=== PATIENT | female | born 1930 | race Caucasian/White ===

== ENCOUNTER 2017-10-08 10:40 | Observation (INO) | payer OTHER, MEDICARE ==
--- NOTE | 2017-10-08 10:59 | EDPHY ---
H & P Time Seen by Provider: 10/08/17 10:54 HPI/ROS: Chief complaint. Shortness of breath, altered mental status HPI. A 87-year-old female presents emergency department with multiple complaints. Patient moved from [place] 5 days ago. She has slight shortness of breath. She was cold yesterday. She is concerned about electrolytes though she has been drinking over light solution. She had headache yesterday but not today. Her mentation for the she feels is somewhat foggy. She has no chest discomfort but slight shortness of breath. No fever cough. No abdominal pain but feels she is passing increased amounts of gas per rectum. No unusual leg pain or swelling. Her blood pressure has been somewhat high she does have a history of hypertension and takes both losartan and atenolol. She was checked out by her self storage manager before she left [place] and the self storage manager felt she was find to move to altitude. ROS Constitutional. no fever/chills, no weakness Eyes. no problems with vision ENT. no sore throat, no nasal drainage Cardiovascular. no chest pain Respiratory. Slight shortness of breath Abdominal. no abdominal pain, no nausea/vomiting, no diarrhea. Passing gas. . no problems urinating MS. no calf pain/swelling, no neck/back pain, no joint pain Skin. no rash Lymph. no swollen glands Neuro. Headache yesterday. Slight foggy mentation Past Medical/Surgical History: Hypertension and colitis Social History: , nonsmoker, no alcohol Smoking Status: Never smoked Physical Exam: General Appearance: Alert well-developed female mild distress vital signs significant for blood pressure 154/109 Eyes: Pupils equal and round no pallor or injection. ENT, Mouth: Mucous membranes are moist. Respiratory: There are no retractions, lungs are clear to auscultation. Cardiovascular: Regular rate and rhythm. Gastrointestinal: Abdomen is soft and nontender, no masses, bowel sounds normal. Neurological: Awake and alert, sensory and motor exams grossly normal. Skin: Warm and dry, no rashes. Musculoskeletal: Neck is supple nontender. Extremities symmetrical, full range of motion. Psychiatric: Patient is oriented X 3, there is no agitation. Constitutional: Initial Vital Signs Temperature (C) 36.8 C 10/08/17 10:45 Heart Rate 60 10/08/17 10:45 Respiratory Rate 18 10/08/17 10:45 Blood Pressure 154/109 H 10/08/17 10:45 O2 Sat (%) 92 10/08/17 10:45 O2 Delivery Mode Room Air O2 (L/minute) 2 Allergies/Adverse Reactions: No Known Allergies Allergy (Unverified 10/08/17 10:44) Home Medications: Medication Instructions Recorded Atenolol [Tenormin 50 mg (*)] 50 mg PO DAILY 10/08/17 Cholecalciferol Vit D3 [Vitamin D3 1,000 units PO DAILY 10/08/17 (*)] Herbals/Supplements -Info Only 1 ea PO DAILY 10/08/17 Losartan Potassium [Cozaar 25 mg 25 mg PO HS 10/08/17 (*)] Multivitamins [Multivitamin (*)] 1 each PO DAILY 10/08/17 Medical Decision Making - Diagnostics EKG Interpretation: EKG interpreted by me shows normal sinus rhythm normal interval. Left axis deviation. Left LVH by voltage. No significant ST elevation or depression. T- waves appear prominent. Rate 56 Imaging Results: Imaging Impressions Chest X-Ray 10/08/17 11:11 Impression: Mild linear scarring or atelectasis in the left lung base versus less likely early infiltrate. Pleural scarring versus small pleural effusion left lower lobe. Chest x-ray interpreted by me shows some left lower lobe atelectasis less likely early infiltrate. Small left lower lobe effusion Procedures: IV normal saline, monitor ED Course/Re-evaluation: On serial evaluations patient is stable. Patient and I discussed imaging and lab an EKG results. We discussed treatment plan including recommendation for admission. She expresses understanding and agreement I consulted and discussed case with Dr. James, hospitalist, who agrees to the admission Differential Diagnosis: I considered acute coronary syndrome, congestive heart failure, pneumonia. No evidence of intracranial bleeding or trauma. She is completely oriented and interactive and neurologically intact. I suspect that altitude play some role in this. She also has mild congestive heart failure which I think is contributing to her shortness of breath. [place] a local physician. - Data Points Laboratory Results: Laboratory Results 10/08/17 11:00 10/08/17 11:00 10/08/17 10/08/17 10/08/17 11:05 11:00 11:00 WBC 7.48 10^3/uL 10^3/uL (3.80-9.50) RBC 4.88 10^6/uL 10^6/uL (4.18-5.33) Hgb 16.1 g/dL g/dL (12.6-16.3) Hct 48.3 % H % (38.0-47.0) MCV 99.0 fL fL (81.5-99.8) MCH 33.0 pg pg (27.9-34.1) MCHC 33.3 g/dL g/dL (32.4-36.7) RDW 14.3 % % (11.5-15.2) Plt Count 278 10^3/uL 10^3/uL (150-400) MPV 11.0 fL fL (8.7-11.7) Neut % (Auto) 66.2 % % (39.3-74.2) Lymph % (Auto) 18.0 % % (15.0-45.0) Stanley % (Auto) 11.4 % % (4.5-13.0) Eos % (Auto) 3.5 % % (0.6-7.6) Baso % (Auto) 0.8 % % (0.3-1.7) Nucleat RBC Rel Count 0.0 % % (0.0-0.2) Absolute Neuts (auto) 4.95 10^3/uL 10^3/uL (1.70-6.50) Absolute Lymphs (auto) 1.35 10^3/uL 10^3/uL (1.00-3.00) Absolute Monos (auto) 0.85 10^3/uL H 10^3/uL (0.30-0.80) Absolute Eos (auto) 0.26 10^3/uL 10^3/uL (0.03-0.40) Absolute Basos (auto) 0.06 10^3/uL 10^3/uL (0.02-0.10) Absolute Nucleated RBC 0.00 10^3/uL 10^3/uL (0-0.01) Immature Gran % 0.1 % % (0.0-1.1) Immature Gran # 0.01 10^3/uL 10^3/uL (0.00-0.10) Sodium 142 mEq/L mEq/L (135-145) Potassium 5.0 mEq/L mEq/L (3.5-5.2) Chloride 99 mEq/L mEq/L (97-110) Carbon Dioxide 29 mEq/l mEq/l (22-31) Anion Gap 14 mEq/L mEq/L (8-16) BUN 12 mg/dL mg/dL (7-23) Creatinine 0.9 mg/dL mg/dL (0.6-1.0) Estimated GFR 59 Glucose 114 mg/dL H mg/dL (70-100) Calcium 11.1 mg/dL H mg/dL (8.5-10.4) Phosphorus 4.1 mg/dL mg/dL (2.5-4.5) Troponin I < 0.012 ng/mL ng/mL (0.000-0.034) NT-Pro-B Natriuret Pep 1110 pg/mL H pg/mL (0-450) Urine Color YELLOW Urine Appearance CLEAR Urine pH 7.0 (5.0-7.5) Ur Specific [place] 1.009 (1.002-1.030) Urine Protein NEGATIVE (NEGATIVE) Urine Ketones NEGATIVE (NEGATIVE) Urine Blood NEGATIVE (NEGATIVE) Urine Nitrate NEGATIVE (NEGATIVE) Urine Bilirubin NEGATIVE (NEGATIVE) Urine Urobilinogen NEGATIVE EU EU (0.2-1.0) Ur Leukocyte Esterase NEGATIVE (NEGATIVE) Urine RBC 1-3 /hpf /hpf (0-3) Urine WBC 1-3 /hpf /hpf (0-3) Ur Epithelial Cells TRACE /lpf /lpf (NONE-1+) Urine Glucose NEGATIVE (NEGATIVE) Departure - Departure Disposition: [facility] Inpatient Acute Clinical Impression: Dyspnea Qualifiers: Dyspnea type: shortness of breath Qualified Code(s): R06.02 - Shortness of breath; R06.00 - Dyspnea, unspecified; R06.01 - Orthopnea Condition: Fair Referrals: NONE *PRIMARY CARE P,. [Primary Care Provider] - As per Instructions
--- NOTE | 2017-10-08 11:07 | CPEKG ---
Heart Rate: 56 RR Interval: 1071 P-R Interval: 204 QRSD Interval: 84 QT Interval: 424 QTC Interval: 410 P [place]: 60 QRS [place]: -8 T Wave [place]: 52 EKG Severity - ABNORMAL ECG - EKG Impression: SINUS RHYTHM EKG Impression: CONSIDER LEFT VENTRICULAR HYPERTROPHY Electronically Signed By: Haider Quinonez 08-Oct-2017 13:57:51
[2017-10-08 11:15] LABS: PLATELET COUNT 278 10^3/uL (150-400)
[2017-10-08] MEDS ORDERED: ACETAMINOPHEN 325 MG TAB PO PRN (16:17)
[2017-10-08] MEDS ORDERED: ONDANSETRON 4 MG/2 ML VIAL IVP PRN (16:17)
[2017-10-08] MEDS ORDERED: ONDANSETRON DISINTEGRATING 4 MG TAB PO PRN (16:17)
[2017-10-08] MEDS ORDERED: NS 1,000 ML IV SCH (16:30)
--- NOTE | 2017-10-08 16:52 | GHP ---
[f rep st] HISTORY AND PHYSICAL DATE OF ADMISSION: 10/08/2017 HISTORY OF PRESENT ILLNESS: Ms. Diaz is an 87-year-old female with history of hypertension and col itis who recently moved to [place] from [place], [place]. She describes yesterday as being very thir sty, drinking a lot of water. It sounds like she has a previous episode of hyponatremia, perhaps fro m SIADH and put on fluid restriction. Therefore, out of concern for the potential of electrolyte rigo angement, she presented to the ER for further evaluation. The patient denies PND, orthopnea, or lowe r extremity edema. She has no history of congestive heart failure. She has mild dyspnea since movin g here 5 days ago. She traveled here at [facility] [email or web address] [place] this past year and had not had di fficulties. She has been a smoker, but quit 40 years ago. She has not had fever, chills, cough, sputum, nausea, or vomiting. She had occasional episodes of di arrhea yesterday, which she attributes to her colitis. She is unable to tell me specifically what ki nd. REVIEW OF SYSTEMS: Complete 10-point review of systems conducted and negative except as noted in the HPI. PAST MEDICAL HISTORY: Hypertension, colitis, episode of hyponatremia, which sounds like SIADH. ALLERGIES: No known drug allergies. MEDICATIONS: Home medications are vitamin D3 and atenolol. Will start a multivitamin. SOCIAL HISTORY: She is living currently with her son and [id number] in [place]. She is waiting to move into an apartment. She has alcohol daily, although not a lot. She quit smoking a long time ago. PHYSICAL EXAMINATION: VITAL SIGNS: Temperature 36.8, blood pressure 154/109, pulse 60, breathing 18 times a minute, 92% on room air. GENERAL: In no acute distress. HEENT: Sclerae are anicteric. O ropharynx clear. Mucous membranes are moist. NECK: Supple without lymphadenopathy or JVD. LUNGS: Clear to auscultation bilaterally. HEART: S1, S2 without murmur. ABDOMEN: Soft, nontender, nondis tended. LOWER EXTREMITIES: Without edema. Calves nontender. SKIN: Without rash. NEUROLOGIC: Exam is nonfocal. LABORATORY DATA: Sodium 142, potassium 5, chloride 99, bicarb 29, BUN 12, creatinine 0.9, glucose 11 4. Calcium is 11.1. BNP is 1110. Troponin is less than 0.012. UA is negative. White blood cells 7.5; hematocrit 48; platelets are 278,000. EKG interpreted by me shows sinus at 56 with normal axis and intervals. There are peak T-waves in I, L, precordial leads with no prior for comparison. Chest x-ray interpreted by me shows no acute cardiopulmonary disease. Discussed the case with Dr. Haider Quinonez. ASSESSMENT AND PLAN: An 87-year-old female with dyspnea. 1. Dyspnea. Uncertain what to make of it. She has stable vital signs. She has a clear chest x-ray . She is bradycardic. I have low suspicion for pulmonary embolism at this time. She is not in ana estive heart failure. Will follow. 2. Elevated BNP. It is difficult to know what to make of this in this elderly female. I think the patient euvolemic and clinically dry. Will not diurese. Given her history of dyspnea, we will check an echocardiogram. 3. Volume status. I think the patient is mildly clinically dry, given the elevated hematocrit. 4. History of diarrhea and normal BUN and creatinine in a 55 kg lady. We will give her a liter of i ntravenous fluids and follow. 5. Hypercalcemia. I suspect this is secondary to mild volume depletion. We will repeat. We will r epeat in the morning. If it remains elevated, a hypercalcemic workup is probably reasonable. 6. Hypertension. Continue her medications. DISPOSITION: Observation status. /[id number]/MODL
[2017-10-08] MEDS ORDERED: MELATONIN 3 MG TAB PO SCH (21:00)
[2017-10-08] MEDS ORDERED: LOSARTAN POTASSIUM 25 MG TAB PO SCH (21:00)
[2017-10-09] MEDS ORDERED: Herbals/Supplements -Info Only PO SCH (09:00)
[2017-10-09] MEDS ORDERED: ATENOLOL 50 MG TAB PO SCH (09:00)
[2017-10-09] MEDS ORDERED: MULTIVITAMINS 1 EACH TAB PO SCH (09:00)
--- NOTE | 2017-10-09 10:28 | ECHO ---
[email or web address] [address] Main: [phone] Fax: Transthoracic Echocardiogram Name: AMADEO MOHAN MR#: [id number] Study Date: 10/09/2017 Study Time: 08:15 AM Date of : 1930 Age: 87 year(s) Height: 162.6 cm (64 in.) Weight: 55.34 kg (122 lb.) BSA: 1.59 m2 Gender: Female Examination: Echo Indication: Dyspnea/elevated BNP Image Quality: Contrast: Requested by: Tl James BP: 145 mmHg/78 mmHg Heart Rate: Rhythm: Indication: Dyspnea/elevated BNP Procedure Staff Hydrant Setter: Sandy Wilson RDCS Reading Physician: Singh Leigh MD Requesting Provider: Conclusions: No pericardial effusion. Preserved LV systolic function ejection fraction 65-70%. Mild left atrial enlargement with mild to moderate mitral regurgitation. Normal right ventricular systolic pressure. Measurements: Chambers Valvular Assessment AV/MV Valvular Assessment TV/PV Normal Normal Normal Name Value Range Name Value Range Name Value Range Ao Jennifer (MM): 3.0 cm (2.2 cm-3.7 AV meanP mmHg ( - ) TR Vmax: 2.67 mm/s ( - ) cm) MV E Vmax: 0.77 m/s ( - ) TR PGmax: 29 mmHg ( - ) IVSd (2D): 0.6 cm (0.6 cm-1.1 MV A Vmax: 0.97 m/s ( - ) syst. PAP: 34 mmHg ( - ) cm) MV E/A: 0.79 ( - ) LVDd (2D): 4.9 cm (3.9 cm-5.3 cm) LVDs (2D): 3.1 cm (2.1 cm-4 cm) LVPWd (2D): 0.5 cm ( - ) LVOTd 1.9 cm 1.9 cm mm LVEF (MOD4): 71 % (>=55 %) EF Range: 65-70 % Continued Measurements: Chambers Valvular Assessment AV/MV Valvular Assessment TV/PV Name Value Name Value Name Value LADs: 3.9 cm MV E' Septal: 0.06 m/s CVP (est.): 5 mmHg LADs Lon.2 cm MV E/E' Septal: 12.10 LA Area: 19.1 cm2 MV E/E' Lateral: 10.70 Patient: AMADEO MOHAN Study Date: 10/09/2017 Page 1 of 2 08:15 AM Findings: Left Ventricle: Normal size left ventricle. No LV hypertrophy. Normal global systolic LV function. The ejection fraction is estimated to be 65-70 %. No regional wall motion abnormality. Right Ventricle: Normal size right ventricle. Left Atrium: The left atrium is mildly dilated. Right Atrium: The right atrium is normal in size. Mitral Valve: The mitral valve is normal in appearance and function. Mild to moderate mitral regurgitation. Aortic Valve: Mild aortic cusp calcification is noted. Trivial aortic valve regurgitation. Tricuspid Valve: The tricuspid valve is normal in appearance and function. Mild tricuspid regurgitation is present. The pulmonary artery pressure is normal. Pulmonic Valve: The pulmonic valve is normal in appearance and function. Aorta: The aorta is normal. Pericardium: No pericardial effusion. (No Signature Object) Patient: AMADEO MOHAN Study Date: 10/09/2017 Page 2 of 2 08:15 AM [id number]
[2017-10-09] MEDS ORDERED: IOPAMIDOL (ISOVUE 370) 100 ML BTL IV ONE (14:13)
--- NOTE | 2017-10-09 14:15 | HOSPPROG ---
Hospitalist Progress Note Assessment/Plan: 87 yo F a/w dyspnea mild hypoxemia hypoxemia: abg and ct pe today outpt pul follow up MR: outpt cardiology follow up h/o hyponatremia: normal here dispo: home today > 30 minutes Subjective: case d/w dr cota. low 80's on RA w ambulation Objective: Vital Signs Temp Pulse Resp BP Pulse Ox 36.7 C 60 18 118/61 95 10/09/17 11:17 10/09/17 11:17 10/09/17 11:17 10/09/17 11:17 10/09/17 11:17 Laboratory Results 10/09/17 05:39 10/08/17 10/09/17 10/10/17 05:59 05:59 05:59 Intake Total 250 Balance 250 - Physical Exam Constitutional: no apparent distress, appears nourished Eyes: PERRL, anicteric sclera Ears, Nose, Mouth, Throat: moist mucous membranes, hearing normal Cardiovascular: regular rate and rhythym, no murmur, rub, or gallop, No JVD, No edema Respiratory: no respiratory distress, no rales or rhonchi Gastrointestinal: normoactive bowel sounds, soft, non-tender abdomen Genitourinary: no bladder fullness, No ontiveros in urethra Skin: warm, normal color Musculoskeletal: full muscle strength, no muscle tenderness Neurologic: AAOx3, sensation intact bilaterally Psychiatric: interacting appropriately, not anxious ICD10 Worksheet Patient Problems: Problems Problem Status Onset Dyspnea Acute
--- NOTE | 2017-10-09 15:13 | ASMTCASEMG ---
Living Arrangements What is your living Answers: Alone arrangement? Who do you live with? Type Of Residence What kind of residence do Answers: House you live in? Discharge Plan Comments Coordination Status Comments Notes: Pt is a 87 y/o female admitted for dyspnea. Therapies are recommending home independent with family. No other d/c needs identified at this time. CM available for changes. Plan: Independent Date Signed: 10/09/2017 03:12 PM Electronically Signed By:FRANCES Jackson
[2017-10-09 15:21] VITALS: BP 128/57
--- NOTE | 2017-10-09 16:45 | PDHOMEO2F ---
Home Oxygen Face to Face Home Orders: I certify that a physician or a nurse practitioner or physician's occupational therapist assistants has had a [id number] encounter with this patient on the date of this order due to the diagnosis listed, which relates to the primary reason the patient requires home oxygen. Alternative treatments have been tried, or considered, and deemed ineffective. It is anticipated that supplemental oxygen will result in improvement with treatment. Home oxygen qualifying diagnosis: copd SpO2 on room air (%): 83 PaO2 on room air (mmHG): 62 Frequency of home oxygen needed: with activity Home oxygen liters per minute: 1 Home oxygen delivery device: nasal cannula Concentrator: No E-tanks for mobility and back up: Yes If ordering portable O2, is the patient mobile in the home?: Yes I certify that, based on these findings, the home oxygen is medically necessary for this patient for the following length of time. Length of time home oxygen needed: 99 years
--- NOTE | 2017-10-09 17:27 | GDS ---
[f rep st] DISCHARGE SUMMARY DISCHARGE DIAGNOSES: 1. Dyspnea. 2. Bxdp-or-cdbnuzew mitral regurgitation. 3. Chronic obstructive pulmonary disease .. 4. Chronic hypoxemic respiratory failure. 5. Thyroid mass. Please see admission history and physical by Dr. Tl James. The patient presented with dyspnea and concern of her electrolytes as she had been drinking a lot of water. The patient had negative tr oponins and no events on telemetry. She was found to be moderately volume depleted, negative serial troponins, elevated BNP. This is attributable to an enlarged left atrium with ceme-js-[id number] boaz l regurgitation. She did not have pulmonary edema. She was found to be hypoxic on ambulation with s at's in the low 80s. CTA showed no pulmonary embolism/emphysema, She does have a long smoking histor y but quit many years ago. She is not wheezing. She is given a prescription for Combivent and refer red to pulmonology. She is referred to Cardiology, and I established a new primary care physician. Incidental thyroid mass is noted, and thyroid ultrasound was ordered for her as an outpatient. I dis cussed all these findings with her son, and she is sent home on home oxygen. /[id number]/MODL
--- NOTE | 2017-10-09 18:10 | HOSPPROG ---
Hospitalist Progress Note Assessment/Plan: Called by RN that patient could not afford Combivent. I transcribed Rx for Albuterol. Close PCP FU Objective: Vital Signs Temp Pulse Resp BP Pulse Ox 37.1 C 65 18 128/57 H 90 L 10/09/17 15:20 10/09/17 15:20 10/09/17 15:20 10/09/17 15:20 10/09/17 15:20 Laboratory Results 10/09/17 05:39 10/08/17 10/09/17 10/10/17 05:59 05:59 05:59 Intake Total 250 Balance 250 ICD10 Worksheet Patient Problems: Problems Problem Status Onset Dyspnea Acute
== END 2017-10-09 18:19 | disposition home or self-care (01) ==
LOC: INTOOBSV 13:23 → F3E 14:31
PROVIDERS: ADMIT Internal Medicine; ATTEND Internal Medicine
DX: R06.00 Dyspnea, unspecified (principal); I34.0 Nonrheumatic mitral (valve) insufficiency; J44.9 Chronic obstructive pulmonary disease, unspecified; J96.11 Chronic respiratory failure with hypoxia; E04.1 Nontoxic single thyroid nodule; I10 Essential (primary) hypertension; Z87.891 Personal history of nicotine dependence; E86.9 Volume depletion, unspecified
CPT/HCPCS: 71045; 71275; 93005; 93306; 97162; 97165; G0378; G8978; G8979; G8987; G8988; Q9967

== ENCOUNTER → 2017-10-24 | Outpatient (CLI) | payer OTHER, MEDICARE | LOC: FIMAGING 14:08 | PROVIDERS: ATTEND Internal Medicine | DX: E04.1 Nontoxic single thyroid nodule (principal) ==

== ENCOUNTER 2018-08-23 17:01 | Emergency (ER) | payer OTHER, MEDICARE ==
--- NOTE | 2018-08-23 17:24 | EDPHY ---
General Time Seen by Provider: 08/23/18 17:23 Narrative: CLINICAL IMPRESSION: Right foot pain, acute gout ASSESSMENT/PLAN: Patient is an 88-year-old female who presents to the emergency department with family, complaints of increasingly painful bunion on her right foot with associated redness and now foot swelling. Patient is nontoxic-appearing, she is in no acute distress on arrival. Foot x-rays reveal degenerative changes with no acute bony abnormality. There was no evidence of acute fracture, dislocation , compartment syndrome, DVT or neurovascular compromise. Also considered gout, cellulitis and septic arthritis. There is no associated calor, patient had no tenderness with passive or active range of motion of the MTP. Her history of physical examination is most consistent with acute gout as the erythema is isolated to the 1st MTP, I feel that septic arthritis and cellulitis are much less likely. Will treat with colchicine and indomethacin, patient was given her 1st dose in the emergency department. She will take the 2nd dose of colchicine in 1 hr, indomethacin sparingly as needed. She is well established with PCP and will call to schedule follow-up; also given her a referral for podiatry/ortho. Conservative return precautions were discussed- patient to return to the emergency Department for significantly worsening or uncontrolled pain, increased redness, development of warmth, fever, significant swelling or for any other concerning symptom. The patient and her family members all verbalize understanding and are in agreement with this plan. DIFFERENTIAL DX: Differential diagnosis includes but not limited to and in no certain order trauma, gout, septic joint, fracture, dislocation, DVT, compartment syndrome or arthritis ED COURSE: 1739: Case discussed with Dr. Marsh, he will also evaluate this patient. CHIEF COMPLAINT: Right foot pain HPI: Patient is an 88-year-old female who presents to the emergency department with family, complaints of increasingly painful bunion on her right foot with associated redness and now foot swelling. Patient with longstanding history of bunion, approximately 2 weeks ago noted some redness along the medial aspect of the great toe MTP, purchased a bunion pad and has been wearing that religiously over the last 2 weeks. Over the last week the patient reports increased redness around her great toe joint. She denies any trauma over the last several weeks, no history of similar episodes in the past. She denies any significant pain, has had no difficulties with walking. No history of gout. She denies any fevers, chills, nausea or vomiting. She denies any redness of the foot or joint. Patient with remote ankle injury with hardware in this ankle. PAST MEDICAL HISTORY: Hypertension Pertinent Past Surgical History: Right ankle surgery Family History: Noncontributory Social History: Denies illicit drug use, smoking ROS: A full 10 point review of systems was negative except for those mentioned in HPI. PHYSICAL EXAM: General Appearance: Well-appearing, no acute distress. HEENT: Normocephalic, atraumatic. External ears are normal. Nares are clear, oropharynx is clear and moist. Eyes: PERRLA, EOMI intact. Conjunctiva pink, no pallor or injection Neck: Supple, nontender, no lymphadenopathy, no midline pain, FROM, no meningismus. Respiratory: There are no retractions, lungs are clear to auscultation. Cardiac: Regular rate and rhythm, no murmurs or gallops. Gastrointestinal: Abdomen is soft, nontender, bowel sounds normal, no masses/ hernia, no rigidity, guarding or focal peritoneal findings. Skin: Warm, dry, no rashes, no nodules on palpation. Upper Extremities: Intact distal pulses, Full range of motion intact, no tenderness, no ecchymosis or edema Lower Extremities: Right foot with generalized edema from the ankle into the forefoot. There is erythema noted along the medial aspect of the right great MTP. No appreciable calor. Patient with full range of motion of the MCP, toes and foot. She has no pain with passive or active range of motion of the great toe. Intact distal pulses, No tenderness, No cyanosis, full range of motion intact, No calf tenderness bilaterally. No calf swelling bilaterally. MEDICAL DECISION MAKING: Patient was seen independently. Secondary supervising physician at time of evaluation was Dr. Marsh, he also evaluated this patient. Diagnosis: Gout, right foot. New, requires workup Summary: See Assessment and Plan for summary of ED visit Clinical lab tests: Not applicable. Independent visualization of images, tracing, or specimens: Yes. Decision to obtain medical records or history from someone other than the patient: Yes, son and [id number] Review / Summarize previous medical records: Yes Discussed patient with another provider: Yes Patient Progress: Stable, discharge. 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 - History Smoking Status: Never smoked - Objective Vital Signs: Initial Vital Signs Temperature (C) 36.6 C 08/23/18 17:09 Heart Rate 88 08/23/18 17:09 Respiratory Rate 16 08/23/18 17:09 Blood Pressure 193/95 H 08/23/18 17:09 O2 Sat (%) 93 08/23/18 17:09 O2 Delivery Mode Room Air Allergies/Adverse Reactions: No Known Allergies Allergy (Unverified 08/23/18 17:12) Home Medications: Medication Instructions Recorded Atenolol [Tenormin 50 mg (*)] 50 mg PO DAILY 10/08/17 Cholecalciferol Vit D3 [Vitamin D3 1,000 units PO DAILY 10/08/17 (*)] Herbals/Supplements -Info Only 1 ea PO DAILY 10/08/17 Losartan Potassium [Cozaar 25 mg 25 mg PO HS 10/08/17 (*)] Multivitamins [Multivitamin (*)] 1 each PO DAILY 10/08/17 Albuterol [Proventil Inhaler HFA 1 - 2 puffs IH Q4H #1 mdi 10/09/17 (*)] Ipratropium/Albuterol [Combivent 1 inh IH QID #1 mdi 10/09/17 Respimat Inhal Labolt(*)] Colchicine [Colchicine (*)] 0.6 mg PO ONCE #1 tab 08/23/18 Indomethacin 50 mg PO TID PRN #10 capsule 08/23/18 Medications Given: Discontinued Medications Colchicine (Colchicine) 1.2 mg PO EDNOW ONE Stop: 08/23/18 18:56 Last Admin: 08/23/18 19:04 Dose: 1.2 mg Departure - Departure Disposition: Home, Routine, Self-Care Clinical Impression: Right foot pain Gout Qualifiers: Gout site: foot Gout etiology: unspecified cause Chronicity: acute Laterality: right Qualified Code(s): M10.9 - Gout, unspecified Condition: Good Instructions: Gout (ED) Additional Instructions: DISCHARGE INSTRUCTIONS FROM YOUR DOCTOR Thank you for visiting our emergency department today. Please keep in mind that discharge from the emergency department does not mean that there is nothing wrong - it simply means that we have not identified an emergency condition that requires further evaluation or treatment in the hospital. You should always plan to follow up with primary care for re-evaluation of your condition in the next 2-3 days. Rest, ice (on and off), elevate the affected joint(s) as much as possible above the level of the heart to decrease pain and swelling. Drink plenty of water each day to avoid dehydration. Stop smoking as soon as possible. Avoid all alcohol. Pay careful attention to the amount of protein you eat. Your daily diet should emphasize fruits, vegetables, whole grains, and fat-free or low-fat milk products. Avoid Aspirin. Indomethacin (anti-inflammatory) as prescribed until the pain is tolerable. Be sure to dose with food. Stop for stomach upset. Avoid prolonged use. Do not combine Indomethacin with Ibuprofen, Aleve, or other over the counter anti-inflammatories. Tylenol every 4-6 hours as directed as needed for less severe pain. Do not exceed 4000 mg in 24 hours. Schedule a follow-up with a primary care provider to be seen in follow-up in the next 3-5 days. Repeat year colchicine dose 1 hr after he received in the emergency department. Seek medical evaluation for any development of calf pain, calf swelling, chest pain, rapid or irregular heart beat, shortness of breath, dizziness, weakness, fainting or other concerns. Return for increased pain or swelling, redness or warmth of the skin, numbness, tingling or weakness of the foot or ankle, discoloration of the toes, coolness of the foot or toes, fever, chills, calf pain/redness/and/or swelling, inability to move your toes or move the ankle or foot, knee, thigh or hip pain, foot pain, chest pain, shortness of breath, abdominal pain, dizziness, weakness , fainting, for abdominal pain, bloody stools, black tarry stools, or any other new, worsening or worrisome symptoms. People present with illnesses and injuries in different ways, and it is always possible that we have missed something. You may always return for re-evaluation if symptoms worsen or if they are not improving or if you develop new/different symptoms. Again, thank you for choosing our emergency department. We hope that you feel better. Referrals: Cat Jaeger MD [Primary Care Provider] - 2-3 days, call for appt. Usama Alcala MD [Medical Doctor] - 2-3 days, call for appt. Prescriptions: Colchicine [Colchicine (*)] 0.6 mg PO ONCE #1 tab Indomethacin 50 mg PO TID PRN #10 capsule PRN Reason: Pain, Severe
[2018-08-23 18:36] VITALS: BP 167/90
[2018-08-23] MEDS ORDERED: COLCHICINE 0.6 MG CAP/TAB PO ONE (18:55)
[2018-08-23] MEDS ORDERED: COLCHICINE 0.6 MG CAP/TAB ONE (19:02)
== END 2018-08-23 19:08 | disposition home or self-care (01) ==
DX: M10.9 Gout, unspecified (principal); M79.671 Pain in right foot; M19.071 Primary osteoarthritis, right ankle and foot; I10 Essential (primary) hypertension

== ENCOUNTER → 2018-08-30 | Outpatient (CLI) | payer OTHER, MEDICARE | LOC: FIMAGING 10:47 ==

== ENCOUNTER 2018-10-11 09:01 | Observation (INO) | payer OTHER, MEDICARE ==
[2018-10-11] MEDS ORDERED: methylPREDNISolone SOD SUCC 125 MG/2 ML VIAL IVP ONE (09:21)
[2018-10-11] MEDS ORDERED: IPRATROPIUM/ALBUTEROL 3 ML DEYVIAL IH ONE (09:21)
--- NOTE | 2018-10-11 09:21 | EDPHY ---
H & P Stated Complaint: SOB/diff breathing Time Seen by Provider: 10/11/18 09:18 HPI/ROS: HPI: This is an 80-year-old female who presents with Chief Complaint: Shortness of breath, cough Location: Chest Quality: Dyspnea, cough Duration: Since Sunday, approximately 3 days Signs and Symptoms: + shortness of breath at rest, + shortness of breath on exertion, + productive cough, no chest pain, no palpitations, no lower extremity edema, no wheezing, no orthopnea, no paroxysmal nocturnal dyspnea, no fever, no injury/trauma, no hemoptysis, no carpal pedal spasms Timing: Acute on chronic Severity: Moderate to severe Context: Patient has a history of COPD, wears oxygen supplementation 2 L nasal cannula at night, presents with 3 day history of worsening shortness of breath that is at rest and on exertion since Sunday. She reports that she had runny nose and productive cough since Sunday. She called pulmonology yesterday and her restaurant team member Dr. Tejeda called in a [facility]-Joe. She took 2 antibiotic pills yesterday but no antibiotic pills today. She denies any fever, chills. She does have fatigue. She denies any weight gain or lower extremity edema. She did not receive influenza vaccine this year. Does not take chronic daily steroids and did not use her inhaler this morning. Modifying Factors: See above Comment: ROS: A comprehensive 10 system review of systems is otherwise negative aside from elements mentioned in the history of present illness. MEDICAL/SURGICAL/SOCIAL HISTORY: Medical history: Hypertension, colitis, COPD, on chronic oxygen supplemental 2 L nasal cannula at night, [id number] mitral regurgitation, thyroid mass, chronic hypoxemic respiratory failure Surgical history: Denies Social history: Retired. Former smoker. CONSTITUTIONAL: Moderate respiratory distress, speaks only several words at a time due to dyspnea, wearing nasal cannula, elderly white female, awake and alert, no obvious distress HEENT: Atraumatic and normocephalic, PERRL, EOMI. Nares patent; no rhinorrhea; no nasal mucosal edema. Tympanic membranes clear. Oropharynx clear, no exudate and moist pink mucosa. Airway patent. No lymphadenopathy. No meningismus. Cardiovascular: Normal S1/S2, regular rate, regular rhythm, without murmur rub or gallop. PULMONARY/CHEST: Symmetrical and nontender. Inspiratory and expiratory labored breathing; rhonchi bilaterally. Fair air movement. Moderate accessory muscle usage. Prolonged expiratory phase. ABDOMEN: Soft, nondistended, nontender, no rebound, no guarding, no peritoneal signs, no masses or organomegaly. No CVAT. EXTREMITIES: 2/2 pulses, strength 5/5, no deformities, no clubbing, no cyanosis or edema. NEUROLOGICAL: no focal neuro deficits. GCS 15. SKIN: Warm and dry, pallor, no erythema. no rash. Good capillary refill. Source: Patient, Family, Old records Exam Limitations: No limitations - Personal History Current Tetanus/Diphtheria Vaccine: Yes - Medical/Surgical History Hx Asthma: No Hx Chronic Respiratory Disease: Yes Hx Diabetes: No Hx Cardiac Disease: Yes Hx Renal Disease: No Hx Cirrhosis: No Hx Alcoholism: No Hx HIV/AIDS: No Hx Splenectomy or Spleen Trauma: No Other PMH: HTN, colitis, COPD - Social History Smoking Status: Never smoked Constitutional: Initial Vital Signs Temperature (C) 36.9 C 10/11/18 09:07 Heart Rate 75 10/11/18 09:07 Respiratory Rate 22 H 10/11/18 09:07 Blood Pressure 123/112 H 10/11/18 09:07 O2 Sat (%) 80 L 10/11/18 09:07 O2 Delivery Mode Room Air O2 (L/minute) 2 Allergies/Adverse Reactions: No Known Allergies Allergy (Verified 10/11/18 11:10) Home Medications: Medication Instructions Recorded Atenolol [Tenormin 50 mg (*)] 50 mg PO DAILY 10/08/17 Cholecalciferol Vit D3 [Vitamin D3 1,000 units PO DAILY 10/08/17 (*)] Herbals/Supplements -Info Only 1 ea PO DAILY 10/08/17 Losartan Potassium [Cozaar 25 mg 25 mg PO HS 10/08/17 (*)] Multivitamins [Multivitamin (*)] 1 each PO DAILY 10/08/17 Albuterol [Proventil Inhaler HFA 1 - 2 puffs IH Q4H PRN 10/11/18 (*)] Azithromycin [Zithromax] 250 mg PO DAILY 10/11/18 Budesonide [Budesonide EC] 9 mg PO DAILY 10/11/18 Psyllium Husk (with Sugar) 1 each PO BID 10/11/18 [Metamucil Packet] Medical Decision Making - Diagnostics EKG Interpretation: 12 lead EKG: Indication: Shortness of breath Rhythm: Normal sinus rhythm [place]: Normal Intervals: Normal QRS: Normal ST segments: Nonspecific changes INTERPRETATION: MAT, no acute ischemic changes The 12 lead EKG was interpreted by myself and with attending. Imaging Results: Imaging Impressions Chest X-Ray 10/11/18 09:11 Impression: No pneumonia or acute process. Chronic mild airways disease. Chest/Thorax CTA 10/11/18 10:14 Impression: 1. Negative for acute pulmonary embolus. 2. Mediastinal and hilar adenopathy, slightly increased since the prior study one year ago. This may be reactive to the patient's emphysema but would consider 3-6 month follow-up chest CT to ensure stability or improvement. 3. Bilateral pulmonary nodules, largest measuring 3 mm, stable and likely benign. 4. Redemonstration of a right thyroid nodule for which FNA is recommended. Findings and recommendations discussed with Abbie Fountain at 1132 hour, 2018. ED Course/Re-evaluation: Vital signs reviewed upon arrival. O2 sats 80% on room air with tachypnea. Placed on supplemental oxygen and surveillance system monitor. IV access, laboratory studies, chest x-ray, blood culture, respiratory pathogen panel, EKG ordered Patient given DuoNeb, IV Solu-Medrol 125 mg, IV Rocephin 1 g, IV azithromycin 500 mg 0935: EKG my read with attending shows normal sinus rhythm with a rate of 67 beats per minute with MAT 1000: Notified by [facility] that troponin 0.01 Chest x-ray my read shows no opacity, no effusion, no pneumothorax. 1014: D-dimer elevated. CTA chest ordered to evaluate for pulmonary embolism. 1015: WBC 6 K but with left shift likely due to being on antibiotics for 24 hr. No signs of anemia, platelet dysfunction. Sodium 131, creatinine 0.8, the proBNP 1320 which was significantly elevated from 1 month ago. 1036: Echocardiogram from 10/08/2017 shows EF 65-70% with mild to moderate mitral regurgitation. 1124: Notified by [facility] that patient is positive for parainfluenza virus type 3 1133: Called by Radiology, Dr. Horvath, who reports CTA chest does not show pulmonary embolism but does shows large lymph nodes in the mediastinum and hilum that have increased in size from prior study and recommend repeat CT in several months, no effusion, no opacity. Repeat vital signs are 137/70, 95% on 2 L nasal cannula, respiratory rate 18 in heart rate 64. 1133: ED decision to consult hospitalist for admission for acute on chronic respiratory failure, COPD exacerbation, parainfluenza 3 infection. Spoke with Soraida who kindly agrees to admit patient under the care of Dr. Mendoza. This patient was seen under the supervision of my secondary supervising physician. I evaluated care for this patient with attending. Discussed this patient with Dr. Nickerson who did see the patient. Differential Diagnosis: Shortness of breath including but not limited to pulmonary infectious process, COPD, asthma, pulmonary embolus and congestive heart failure. - Data Points Laboratory Results: Laboratory Results 10/11/18 09:55 10/11/18 09:55 10/11/18 10/11/18 10/11/18 09:55 09:55 09:55 WBC 6.50 10^3/uL 10^3/uL (3.80-9.50) RBC 4.49 10^6/uL 10^6/uL (4.18-5.33) Hgb 14.1 g/dL g/dL (12.6-16.3) Hct 42.7 % % (38.0-47.0) MCV 95.1 fL fL (81.5-99.8) MCH 31.4 pg pg (27.9-34.1) MCHC 33.0 g/dL g/dL (32.4-36.7) RDW 14.1 % % (11.5-15.2) Plt Count 239 10^3/uL 10^3/uL (150-400) MPV 10.4 fL fL (8.7-11.7) Neut % (Auto) 75.7 % H % (39.3-74.2) Lymph % (Auto) 9.2 % L % (15.0-45.0) [place] % (Auto) 13.8 % H % (4.5-13.0) Eos % (Auto) 0.2 % L % (0.6-7.6) Baso % (Auto) 0.8 % % (0.3-1.7) Nucleat RBC Rel Count 0.0 % % (0.0-0.2) Absolute Neuts (auto) 4.92 10^3/uL 10^3/uL (1.70-6.50) Absolute Lymphs (auto) 0.60 10^3/uL L 10^3/uL (1.00-3.00) Absolute Monos (auto) 0.90 10^3/uL H 10^3/uL (0.30-0.80) Absolute Eos (auto) 0.01 10^3/uL L 10^3/uL (0.03-0.40) Absolute Basos (auto) 0.05 10^3/uL 10^3/uL (0.02-0.10) Absolute Nucleated RBC 0.00 10^3/uL 10^3/uL (0-0.01) Immature Gran % 0.3 % % (0.0-1.1) Immature Gran # 0.02 10^3/uL 10^3/uL (0.00-0.10) D-Dimer 3.64 ug/mLFEU H ug/mLFEU (0.00-0.50) Sodium 131 mEq/L L mEq/L (135-145) Potassium 4.4 mEq/L mEq/L (3.5-5.2) Chloride 96 mEq/L L mEq/L (97-110) Carbon Dioxide 26 mEq/l mEq/l (22-31) Anion Gap 9 mEq/L mEq/L (6-14) BUN 11 mg/dL mg/dL (7-23) Creatinine 0.8 mg/dL mg/dL (0.6-1.0) Estimated GFR > 60 Glucose 117 mg/dL H mg/dL (70-100) Calcium 9.6 mg/dL mg/dL (8.5-10.4) Total Bilirubin 0.5 mg/dL mg/dL (0.1-1.4) Conjugated Bilirubin 0.3 mg/dL mg/dL (0.0-0.5) Unconjugated Bilirubin 0.2 mg/dL mg/dL (0.0-1.1) AST 19 IU/L IU/L (14-46) ALT 30 IU/L IU/L (9-52) Alkaline Phosphatase 71 IU/L IU/L (38-126) POC Troponin I NT-Pro-B Natriuret Pep 1320 pg/mL H pg/mL (0-450) Total Protein 6.8 g/dL g/dL (6.3-8.2) Albumin 4.1 g/dL g/dL (3.5-5.0) 10/11/18 09:53 WBC RBC Hgb Hct MCV MCH MCHC RDW Plt Count MPV Neut % (Auto) Lymph % (Auto) [place] % (Auto) Eos % (Auto) Baso % (Auto) Nucleat RBC Rel Count Absolute Neuts (auto) Absolute Lymphs (auto) Absolute Monos (auto) Absolute Eos (auto) Absolute Basos (auto) Absolute Nucleated RBC Immature Gran % Immature Gran # D-Dimer Sodium Potassium Chloride Carbon Dioxide Anion Gap BUN Creatinine Estimated GFR Glucose Calcium Total Bilirubin Conjugated Bilirubin Unconjugated Bilirubin AST ALT Alkaline Phosphatase POC Troponin I 0.01 ng/mL ng/mL (0.00-0.08) NT-Pro-B Natriuret Pep Total Protein Albumin Microbiology Results: MICROBIOLOGY 10/11/18 09:40 Nasal, Sinus - Swab Respiratory Panel (PCR) - Final Parainfluenza Virus Type 3 Medications Given: Discontinued Medications Albuterol/Ipratropium (Duoneb) 3 ml IH EDNOW ONE Stop: 10/11/18 09:22 Last Admin: 10/11/18 09:39 Dose: 3 ml Azithromycin 500 mg/ Dextrose 255 mls @ 255 mls/hr IV EDNOW ONE PRN Reason: Protocol Stop: 10/11/18 11:04 Last Admin: 10/11/18 11:41 Dose: 255 mls Ceftriaxone Sodium/Dextrose (Rocephin 1 Gm (Premix)) 50 mls @ 100 mls/hr IV EDNOW ONE PRN Reason: Protocol Stop: 10/11/18 10:34 Last Admin: 10/11/18 10:29 Dose: 50 mls Methylprednisolone Sodium Succinate (Solu-Medrol) 125 mg IVP EDNOW ONE Stop: 10/11/18 09:22 Last Admin: 10/11/18 09:39 Dose: 125 mg Point of Care Test Results: Chemistry 10/11/18 09:53 POC Troponin I 0.01 ng/mL ng/mL (0.00-0.08) Departure - Departure Disposition: [facility] Inpatient Acute Clinical Impression: COPD with exacerbation, Infection due to parainfluenza virus 3, Hilar lymphadenopathy, Mediastinal lymphadenopathy Acute and chronic respiratory failure Qualifiers: Respiratory failure complication: hypoxia Qualified Code(s): J96.21 - Acute and chronic respiratory failure with hypoxia Condition: Fair
[2018-10-11 09:58] LABS: PLATELET COUNT 239 10^3/uL (150-400)
[2018-10-11] MEDS ORDERED: AZITHROMYCIN IV 500 MG in D5W 250 ML IV ONE (10:05)
[2018-10-11] MEDS ORDERED: IOPAMIDOL (ISOVUE 370) 100 ML BTL IV ONE (10:22)
--- NOTE | 2018-10-11 12:19 | PDGENHP ---
History and Physical History and Physical: Chief complaint: Shortness of breath History of present illness: The patient is an 88yo F w/ H/o COPD who presented with URI symptoms including sore throat and chest congestion and wheezing x 3 days. She had been doing normal activities pior to this starting. She went to her Pulm Rehab class 4 days ago w/o problems. She had called her Drink Waiter, Dr. Tejeda, who had sent her Rx for budesonide and azithromycin which she started last night. She became very short of breath walking to the [facility] pharmacy to fill her Rx, which was unusul for her. Today her dyspnea worsened and she presented to the ED. She has a productive cough. She reports fatigue. She denies fevers or chills. Symptoms are worse with exertion and activity. Symptoms are better with nebulizer treatment. She has had similar episodes in the past. Past medical history: COPD, hypertension, colitis, hyponatremia, thyroid nodule. Past surgical history: R ankle fracture repair. L breast cystectomy. Medications: Albuterol inhaler, oral budesonide, atenolol, azithromycin, vitamin D3, losartan, multivitamin, Metamucil, herbal supplement. Allergies: No known drug allergies. Social history: Former smoker. Occasionally consumes alcohol. Lives alone in a condo. Retired. Family history: Father - emphysema. Review of systems: 10 point review of systems was conducted and is negative except per HPI Physical exam: Vitals: Reviewed General: The patient is a female who is A&Ox3 and in no acute distress. HEENT: normocephalic, extraocular movements intact, conjunctivae clear, no lesions on face or pinnae. Nares and oral mucosa pink and moist. Neck: trachea midline, no visible masses, no external lesions. CV: +S1/S2, reg rate and rhythm. No murmurs/rubs/gallops. Resp: unlabored breathing, lungs clear to auscultation w/o rales, rhonchi, or wheezing. Abd: soft and nondistended, bowel sounds present. Nontender to palpation throughout. Musculoskeletal: Normal gait. Neuro: cranial nerves II - XII grossly intact. Intact gross motor and sensory function. Psych: appropriate mood/affect. Skin: No rash or ecchymoses or petechiae. : no suprapubic tenderness or CVA tenderness. Heme/lymph: No peripheral edema. Labs: WBC 6.5 hemoglobin 14.1 platelet 239 D-dimer 3.64 sodium 131 chloride 96 potassium 4.4 CO2 26 BUN 11 creatinine 0.8 glucose 117 proBNP 1320. Respiratory panel-positive for parainfluenza virus type 3. Other Data: Chest x-ray-two view- personally interpreted-no acute cardiopulmonary process. Chest CTA: No PE. Mild to moderate central lobular emphysema. Dilatation of pulmonary arteries. Moderate cardiomegaly. Complex right thyroid nodule. EKG-personally interpreted-normal sinus rhythm, rate 70, no acute ischemic changes. Some artifact. Impression and plan: Acute COPD exacerbation Acute parainfluenza viral respiratory infection Acute hypoxemic respiratory failure, on O2 -SVNs, O2, steroid, antibiotic. -PT/OT. Hyponatremia, mild -Recheck in AM. Insomnia -pt does not want melatonin. -She has tolerated Ambien in the past prn. R thyroid nodule -getting outpt monitoring for this through her PCP Dr. Jaeger. VTE ppx - Lovenox. Code status - full. Observation status.
[2018-10-11] MEDS ORDERED: ALBUTEROL 3 ML DEYVIAL IH PRN (13:27)
[2018-10-11] MEDS ORDERED: ACETAMINOPHEN 325 MG TAB PO PRN (13:27)
--- NOTE | 2018-10-11 14:37 | CPEKG ---
Test Reason : OPEN Blood Pressure : / mmHG Vent. Rate : 067 BPM Atrial Rate : 067 BPM P-R Int : 210 ms QRS Dur : 086 ms QT Int : 401 ms P-R-T Axes : 067 000 041 degrees QTc Int : 424 ms Sinus rhythm Confirmed by Juvenal Nickerson ([id number]) on 10/11/2018 2:36:30 PM Referred By: Juevnal Nickerson Confirmed By:Juvenal Nickerson
[2018-10-11] MEDS ORDERED: ZOLPIDEM TARTRATE 5 MG TAB PO PRN (16:05)
[2018-10-11] MEDS: IPRATROPIUM/ALBUTEROL 3 ML DEYVIAL IH SCH ×2 (16:14→22:35)
[2018-10-11] MEDS ORDERED: LOSARTAN POTASSIUM 25 MG TAB PO SCH (21:00)
[2018-10-11] MEDS: PSYLLIUM METAMUCIL 1 PKT PO SCH ×2 (21:44→21:53)
[2018-10-11] MEDS: methylPREDNISolone SOD SUCC 40 MG/ML VIAL IVP SCH (21:44)
[2018-10-12 04:44] LABS: PLATELET COUNT 216 10^3/uL (150-400)
[2018-10-12] MEDS: methylPREDNISolone SOD SUCC 40 MG/ML VIAL IVP SCH ×2 (05:08→16:18)
[2018-10-12] MEDS: IPRATROPIUM/ALBUTEROL 3 ML DEYVIAL IH SCH ×2 (05:34→09:49)
[2018-10-12 08:35] VITALS: BP 159/57
[2018-10-12] MEDS ORDERED: MULTIVITAMINS 1 EACH TAB PO SCH (09:00)
[2018-10-12] MEDS ORDERED: AZITHROMYCIN 250 MG TAB PO SCH (09:00)
[2018-10-12] MEDS ORDERED: ENOXAPARIN 40 MG/0.4 ML SYR SC SCH (09:00)
[2018-10-12] MEDS ORDERED: CHOLECALCIFEROL VIT D3 1,000 UNITS TAB PO SCH (09:00)
[2018-10-12] MEDS ORDERED: ATENOLOL 50 MG TAB PO SCH (09:00)
[2018-10-12] MEDS ORDERED: Herbals/Supplements -Info Only PO SCH (09:00)
[2018-10-12] MEDS: PSYLLIUM METAMUCIL 1 PKT PO SCH (10:15)
--- NOTE | 2018-10-12 14:14 | PDDCSUM ---
Discharge Summary Discharge Summary: Date of Admission: 10/11/2018 Date of Discharge: 10/12/2018 Discharge/Admission Diagnoses: Acute COPD exacerbation Acute parainfluenza viral respiratory infection Acute on chronic hypoxemic respiratory failure, on O2 Hyponatremia, mild Insomnia R thyroid nodule Consultants: None. Hospital Course: The patient is an 88yo F w/ H/o COPD who presented with URI symptoms including sore throat and chest congestion and wheezing x 3 days. She had been doing normal activities pior to this starting. She had called her Hardness Inspector, Dr. Tejeda, who had sent her Rx for budesonide and azithromycin, but after one dose she was not feeling better and presented to the ED. The patient was put on supplemental oxygen and given nebulizer treatments and IV steroids. The next day she was feeling much better and was discharged home with instructions to resume her home medications, including the recently prescribed medications by Dr. Tejeda. Patient was recommended to use portable oxygen on discharge because her ambulatory SpO2 was 88% on room air. However she declined this option and understood/except potential risks associated with hypoxia including cardiac arrest. She does have oxygen at home, which she normally uses at night. Physical Exam: Gen - alert, in NAD, ambulating. Condition: Fair. Discharged to: Pertinent tests/labs/imaging: Chest x-ray-two view- personally interpreted-no acute cardiopulmonary process. Chest CTA: No PE. Mild to moderate central lobular emphysema. Dilatation of pulmonary arteries. Moderate cardiomegaly. Complex right thyroid nodule. EKG-personally interpreted-normal sinus rhythm, rate 70, no acute ischemic changes. Some artifact. Medications: Please see med rec form. Resume home medications, No new medications. Special instructions: Perform activities as tolerated. Wear oxygen during the day as needed to maintain oxygen saturation around 88-92% . Continue oxygen at night. Return to ED for worsening or concerning symptoms. Follow up: PCP Dr. Cat Jaeger in [address] Jagedep Tejeda in 3-5 days. > 30 minutes of total time was spent on counseling and coordination of care for this patient's discharge.
--- NOTE | 2018-10-12 14:27 | ASMTLACE ---
RIGOBERTO Length of stay for Answers: 1 day current admission Comorbidities - select Answers: Chronic pulmonary disease all that apply Other Notes: HTN # of Emergency department Answers: 1-2 visits in the last 6 months Score: 5 Date Signed: 10/12/2018 02:27 PM Electronically Signed By:Rika Watkins
== END 2018-10-12 15:31 | disposition home or self-care (01) ==
LOC: INTOOBSV 11:42 → F3N 12:38
PROVIDERS: ADMIT Internal Medicine; ATTEND Internal Medicine
DX: J44.1 Chronic obstructive pulmonary disease with (acute) exacerbation (principal); J06.9 Acute upper respiratory infection, unspecified; B97.89 Other viral agents as the cause of diseases classified elsewhere; J96.21 Acute and chronic respiratory failure with hypoxia; Z99.81 Dependence on supplemental oxygen; E87.1 Hypo-osmolality and hyponatremia; G47.00 Insomnia, unspecified; E04.1 Nontoxic single thyroid nodule; I10 Essential (primary) hypertension; I34.1 Nonrheumatic mitral (valve) prolapse; Z87.891 Personal history of nicotine dependence
CPT/HCPCS: 71046; 71275; 93005; 96365; 96366; 96372; 96375; 96376; 97162; 97166; 99285; G0378; J0456; J0696; J2920; J2930; Q9967; 84484-ER